=== PATIENT | female | born 1985 | race African-American/Black ===

== ENCOUNTER 2018-09-28 05:26 | Emergency (ER) | payer MEDICARE, MEDICAID ==
[~2018-09-28] VITALS: Ht 165.1 cm; Wt 66.7 kg
== END 2018-09-28 07:38 | disposition home or self-care (01) ==
LOC: ED 05:26
DX: S43.004A Unspecified dislocation of right shoulder joint, initial encounter (principal); Z88.6 Allergy status to analgesic agent; Z88.8 Allergy status to other drugs, medicaments and biological substances; Z91.040 Latex allergy status; W01.0XXA Fall on same level from slipping, tripping and stumbling without subsequent striking against object, initial encounter; Y93.01 Activity, walking, marching and hiking; Y92.89 Other specified places as the place of occurrence of the external cause; Y99.8 Other external cause status

== ENCOUNTER 2019-09-19 21:43 | Emergency (ER) | payer MEDICARE, MEDICAID ==
[~2019-09-19] VITALS: Ht 165.1 cm; Wt 63.0 kg
== END 2019-09-20 02:04 | disposition home or self-care (01) ==
LOC: ED 21:43
DX: S43.004A Unspecified dislocation of right shoulder joint, initial encounter (principal); Z88.6 Allergy status to analgesic agent; Z88.8 Allergy status to other drugs, medicaments and biological substances; Z91.040 Latex allergy status; Z91.048 Other nonmedicinal substance allergy status; W01.0XXA Fall on same level from slipping, tripping and stumbling without subsequent striking against object, initial encounter; Y93.89 Activity, other specified; Y92.89 Other specified places as the place of occurrence of the external cause; Y99.8 Other external cause status

== ENCOUNTER 2021-11-11 08:52 | Emergency (ER) | payer MEDICARE, MEDICAID ==
[~2021-11-11] VITALS: Ht 165.1 cm; Wt 69.9 kg
== END 2021-11-11 13:50 | disposition home or self-care (01) ==
LOC: ED 08:52
DX: S43.002A Unspecified subluxation of left shoulder joint, initial encounter (principal); Z91.040 Latex allergy status; Z88.6 Allergy status to analgesic agent; Z88.8 Allergy status to other drugs, medicaments and biological substances; X50.9XXA Other and unspecified overexertion or strenuous movements or postures, initial encounter; Y93.89 Activity, other specified; Y92.89 Other specified places as the place of occurrence of the external cause; Y99.8 Other external cause status

== ENCOUNTER 2021-12-15 02:35 | Emergency (ER) | payer MEDICARE, MEDICAID | END 2021-12-15 08:11 | disposition left against medical advice (07) | LOC: ED 02:35 | DX: S43.005A Unspecified dislocation of left shoulder joint, initial encounter (principal); T78.49XA Other allergy, initial encounter; X58.XXXA Exposure to other specified factors, initial encounter; Y93.89 Activity, other specified; Y92.89 Other specified places as the place of occurrence of the external cause; Y99.8 Other external cause status ==

== ENCOUNTER 2022-01-29 19:56 | Emergency (ER) | payer MEDICARE, MEDICAID ==
[~2022-01-29] VITALS: Ht 165.1 cm; Wt 76.2 kg
[2022-01-29] MEDS ORDERED: LEVETIRACETAM500 MG PO (20:32)
[2022-01-29] MEDS ORDERED: LAMOTRIGINE200 MG PO (20:32)
[2022-01-29] MEDS ORDERED: EPIPEN 2-P0.3 MG/0.3 IJ (20:33)
[2022-01-29] MEDS ORDERED: CYCLOBENZAPRINE10 MG PO (22:16)
== END 2022-01-29 22:25 | disposition home or self-care (01) ==
LOC: ED 19:56
DX: S43.402A Unspecified sprain of left shoulder joint, initial encounter (principal); T78.1XXA Other adverse food reactions, not elsewhere classified, initial encounter; Z79.899 Other long term (current) drug therapy; Z88.8 Allergy status to other drugs, medicaments and biological substances; X58.XXXA Exposure to other specified factors, initial encounter; Y93.89 Activity, other specified; Y92.89 Other specified places as the place of occurrence of the external cause; Y99.8 Other external cause status

== ENCOUNTER 2022-03-06 22:55 | Emergency (ER) | payer MEDICARE, MEDICAID ==
[~2022-03-06 22:55] MED LIST: CYCLOBENZAPRINE10 MG PO; EPIPEN 2-P0.3 MG/0.3 IJ; LAMOTRIGINE200 MG PO; LEVETIRACETAM500 MG PO
== END 2022-03-06 23:08 | disposition left against medical advice (07) ==
LOC: ED 22:55
DX: Z53.21 Procedure and treatment not carried out due to patient leaving prior to being seen by health care provider (principal)

== ENCOUNTER 2022-06-08 06:30 | Emergency (ER) | payer OTHER, MEDICAID ==
[~2022-06-08] VITALS: Ht 162.5 cm; Wt 73.9 kg
== END 2022-06-08 09:31 | disposition left against medical advice (07) ==
LOC: ED 06:30
DX: S43.032A Inferior subluxation of left humerus, initial encounter (principal); T78.1XXA Other adverse food reactions, not elsewhere classified, initial encounter; R05.9 Cough, unspecified; Z88.6 Allergy status to analgesic agent; Z88.8 Allergy status to other drugs, medicaments and biological substances; Z91.040 Latex allergy status; Z91.010 Allergy to peanuts; Z79.899 Other long term (current) drug therapy; W18.49XA Other slipping, tripping and stumbling without falling, initial encounter; Y93.89 Activity, other specified; Y92.098 Other place in other non-institutional residence as the place of occurrence of the external cause; Y99.8 Other external cause status; X58.XXXA Exposure to other specified factors, initial encounter

== ENCOUNTER 2023-02-28 19:23 | Emergency (ER) | payer OTHER, MEDICAID ==
[~2023-02-28] VITALS: Ht 167.6 cm; Wt 73.0 kg
== END 2023-02-28 19:57 | disposition left against medical advice (07) ==
LOC: ED 19:23
DX: T63.441A Toxic effect of venom of bees, accidental (unintentional), initial encounter (principal); Z88.6 Allergy status to analgesic agent; Z88.5 Allergy status to narcotic agent; Z91.040 Latex allergy status; Z91.010 Allergy to peanuts; Y92.89 Other specified places as the place of occurrence of the external cause